=== PATIENT | female | born 1930 | race Caucasian/White ===

== ENCOUNTER → 2017-12-07 | Outpatient (CLI) | payer MEDICARE ==
[2017-12-07 09:59] LABS: Calcium 9.7 mg/dL (8.4-10.2); Potassium 4.1 mmol/L (3.5-5.1)
== END | disposition home or self-care (01) ==
LOC: LABWHC1 09:06
PROVIDERS: ATTEND Internal Medicine Interventional Cardiology
DX: E87.5 Hyperkalemia (principal)
CPT/HCPCS: 36415; 80048

== ENCOUNTER → 2018-01-09 | Outpatient (CLI) | payer MEDICARE ==
[2018-01-09 08:48] LABS: Calcium 9.5 mg/dL (8.4-10.2)
== END | disposition home or self-care (01) ==
LOC: LABWHC1 08:01
PROVIDERS: ATTEND Internal Medicine Interventional Cardiology
DX: I10 Essential (primary) hypertension (principal); E87.5 Hyperkalemia
CPT/HCPCS: 36415; 80048

== ENCOUNTER → 2018-06-13 | Outpatient (CLI) | payer MEDICARE ==
[2018-06-13 09:54] VITALS: BP 129/62; PULSE 85; RESP 16; TEMP 97.5; BMI 27.3
--- NOTE | 2018-06-13 11:04 | P.HPOB ---
History of Present Illness H&P Date: 06/13/18 Chief Complaint: The patient is here for her routine gynecologic exam. This is an 87-year-old with an LMP of 1970. The patient is here to establish with this office. She is status post cystocele and rectocele repairs in 1959 and total abdominal hysterectomy in 1969. She states she has been followed conservatively for a cystocele during the past 10-15 years. It has been about 10 years since her last pelvic exam. She feels like the cystocele may be getting worse since she feels pelvic pressure and has the feeling that "something is down there". She does not see anything protruding from the vaginal opening. She states her urinary stream is more for word than usual. She often feels like she still has to urinate after voiding. She is not sexually active. Review of Systems She lost about 15 pounds about 2 years ago and she was happy with that. Her weight has been fairly stable since then.. She denies respiratory, cardiac and G.I. problems. She denies maltreatment or problems with falling. : she denies any significant problems with urinary leakage but has had a change in her urinary stream and has had urinary urgency as above in the HPI. 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 History of Any Multi-Drug Resistant Organisms: None Reported Past Surgical History: Appendectomy, Section, Cholecystectomy, Heart Catheterization With Stent, Hysterectomy, Joint Replacement (Bilateral knee replacement surgery) Additional Past Surgical History / Comment(s): Cystocele,Rectocele,Retina Detachments and repair,Cataract,R & L knee replacment. Colonoscopy 2013(6th). 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 She is not sexually active or seeing anybody at this time. - Past Family History Mother Family Medical History: Cancer (Possible esophageal) Sister(s) Family Medical History: Cancer (Type unknown) Father Family Medical History: No Reported History Medications and Allergies Home Medications Medication Instructions Recorded Confirmed Type Aspirin 81 mg PO DAILY 06/13/18 06/13/18 History Atenolol [Tenormin] 25 mg PO DAILY 06/13/18 06/13/18 History Atorvastatin [Lipitor] 10 mg PO DAILY 06/13/18 06/13/18 History Hydrochlorothiazide [Hydrodiuril] 12.5 mg PO DAILY 06/13/18 06/13/18 History Levothyroxine Sodium [Synthroid] 75 mcg PO DAILY 06/13/18 06/13/18 History Multivit with Calcium,Iron,Min 1 each PO DAILY 06/13/18 06/13/18 History [Women's Multivitamin] Saxagliptin HCl [Onglyza] 5 mg PO DAILY 06/13/18 06/13/18 History glipiZIDE [Glucotrol] 5 mg PO TID 06/13/18 06/13/18 History Allergies Allergy/AdvReac Type Severity Reaction Status Date / Time No Known Allergies Allergy Unverified 06/13/18 09:39 Exam Vital Signs Temp Pulse Resp BP Pulse Ox 06/13/18 09:45 97.5 F L 85 16 129/62 95 Intake and Output 06/12/18 06/13/18 06/13/18 22:59 06:59 14:59 Other: Weight 72.121 kg Height 5'4", weight 159 pounds, BMI 27.3. This is a well-developed well-nourished white female who is alert and oriented times 3 in no acute distress. HEENT: Within normal limits. NECK: Supple without mass or thyromegaly. CHEST AND LUNGS: Clear to auscultation. HEART: Regular rate and rhythm. BREASTS: Are without mass or discharge. AXILLARY EXAM: Negative for adenopathy. BACK: Negative for CVA tenderness. ABDOMEN: Soft, nontender, without palpable masses. PELVIC EXAM: External genitalia appears normal with moderate atrophy. Vagina appears normal with moderate atrophy. The vaginal cuff is well supported There is a small cystocele at rest, grade 1. With Valsalva, there is a grade 2 cystocele. Bimanual examination is negative for mass and there is minimal tenderness in the area of the bladder. There is no adnexal tenderness or mass. RECTAL EXAM: Rectovaginal exam is negative for mass or tenderness and is negative for occult blood. There is no significant rectocele noted and no evidence of enterocele. EXTREMITIES: Nontender. IMPRESSION: 1. 87 year old menopausal female status post cystocele and rectocele repairs in 1959 and DEYVI in 1969. 2. Grade 2 cystocele which may be directly or indirectly causing vaginal symptoms of pressure. 3. Urinary urgency with which may or may not be related to the cystocele. Differential diagnosis will also include incomplete emptying and urinary tract infection. PLAN: 1. Pap smears have been discontinued. 2. Self breast awareness was discussed with the patient. 3. I have recommended screening mammogram. She is uncertain as to whether this is covered by her insurance. She has not had this done for several years. The orders that was given to the patient for this and she will call her insurance company to check her coverage. 4. Osteoporosis prevention was discussed. I have stressed the importance of adequate calcium, vitamin D and regular exercise. Recommended amounts of calcium and vitamin D were also discussed. I have recommended bone density screening since it is been 5 to 10 years since she has had this done according to the patient. The order slip was given to the patient. 5. Urinalysis and urine culture have been obtained. 6. She did receive a flu shot and fall. 7. We have had a long discussion regarding her symptoms and small cystocele. At this time I do not feel that surgery is warranted. She will try to empty her bladder more completely by using negative Valsalva exercises and spending more time voiding as well as trying to empty the bladder more completely with relaxation. Instructions were given to the patient on negative Valsalva exercises. She will try these prior to voiding. 8. She will return in one year and PRN.
[2018-06-13 16:11] LABS: Appearance,Urine Clear (Clear); Bilirubin,Urine Negative (Negative); Blood,Urine Negative (Negative); Color,Urine Light Yellow; Glucose,Urine (UA) Negative (Negative); Ketones,Urine Negative (Negative); Leukocyte Esterase,Urine Negative (Negative); Nitrite,Urine Negative (Negative); PH, Urine 5.5 (5.0-8.0); Protein,Urine Negative (Negative); Specific Gravity,Urine 1.006 (1.001-1.035); Urobilinogen,Urine <2.0 mg/dL (<2.0)
--- NOTE | 2018-06-14 15:13 | P.PN ---
Progress Note - Text Progress Note Date: 06/14/18 Urinalysis done yesterday was negative. The patient was notified by phone. Await urine culture results.
== END | disposition home or self-care (01) ==
LOC: WWCWWP 09:24
PROVIDERS: ATTEND Obstetrics & Gynecology
DX: R39.15 Urgency of urination (principal)
CPT/HCPCS: 81003; 87086

== ENCOUNTER → 2018-08-03 | Outpatient (CLI) | payer MEDICARE ==
--- NOTE | 2018-08-03 11:43 | BD ---
EXAMINATION TYPE: Axial Bone Density DATE OF EXAM: 08/03/2018 COMPARISON: NONE CLINICAL HISTORY: Postmenopausal without hormone replacement therapy Height: 5 FT 3 IN Weight: 158 FRAX RISK QUESTIONS: Secondary Osteoporosis: Rheumatoid Arthritis: YES RISK FACTORS HISTORY OF: Active: YES Postmenopausal woman: AMBAR AYALA IN HER 30'S Lost more than 2 inches in height since high school: YES MEDICATIONS: Thyroid Medications: YES Which medication: SYNTHROID How Lon YEARS Additional Medications: ONGLYZA, SYNTHROID, LIPITOR, ATENOLOL, GLIPIZIDE, VIT, HYDROCHLOROTHIAZIDE, A SPIRIN Additional History: EXAM MEASUREMENTS: Bone mineral densitometry was performed using the [employer] System. Bone mineral density as measured about the Lumbar spine is: ----- L1-L4(G/cm2): 1.235 T Score Values are as follows: ----- L2: 0.2 ----- L3: 1.0 ----- L4: 0.6 ----- L1-L4: 0.[address] MALIKA OLSEN Bone mineral density about the R hip (g/cm2): 1.101 Bone mineral density about the L hip (g/cm2): 1.004 T Score values are as follows: -----R Neck: 0.5 -----L Neck: -0.2 -----R Total: 0.7 -----L Total: 0.[address] MALIKA OLSEN IMPRESSION: Normal (Values between +1 and -1 indicate normal bone mass). Consider repeating this study in 5 year s or sooner if there is some new clinical indication. NOTE: T-SCORE=SD OF THE YOUNG ADULT MEAN.
--- NOTE | 2018-08-06 11:13 | MM ---
Reason for exam: screening (asymptomatic). Last mammogram was performed 4 years and 6 months ago. History: Patient is postmenopausal. Physical Findings: A clinical breast exam by your physician is recommended on an annual basis and results should be correlated with mammographic findings. MG 3D Screening Mammo W/Cad Bilateral CC and MLO view(s) were taken. Prior study comparison: February 05, 2014, bilateral MG screening mammo w CAD. February 04, 2013, bilateral digital screening mammo w/CAD. Benign appearing bilateral calcifications. Focal asymmetry of the left retroareolar breast stable back to 2013. ASSESSMENT: Benign, BI-RAD 2 RECOMMENDATION: Routine screening mammogram of both breasts in 1 year.
--- NOTE | 2018-08-07 17:55 | P.PN ---
Progress Note - Text Progress Note Date: 08/07/18 OUTPATIENT FOLLOW-UP NOTE TEST(S)/RESULTS: test results from 08/03/2018 include benign mammogram and normal bone density test. METHOD OF NOTIFICATION: the patient was notified by phone. PATIENT COMMENTS: she is happy to hear these results. DIAGNOSIS: normal bone density testing and benign mammogram. DISCUSSION: I have recommended that she get adequate calcium, vitamin D and regular exercise as previously discussed. PLAN: repeat bone density testing in 6 years.She was advised to return in one year for her annual well woman exam.
== END | disposition home or self-care (01) ==
LOC: RADBDWWP 08:19
PROVIDERS: ATTEND Obstetrics & Gynecology
DX: Z12.31 Encounter for screening mammogram for malignant neoplasm of breast (principal); Z78.0 Asymptomatic menopausal state
CPT/HCPCS: 77063; 77067; 77080

== ENCOUNTER → 2019-06-18 | Outpatient (CLI) | payer MEDICARE ==
[2019-06-18 09:43] VITALS: BP 99/65; PULSE 78; RESP 18; TEMP 98.2
--- NOTE | 2019-06-18 10:21 | P.HPOB ---
History of Present Illness H&P Date: 06/18/19 Chief Complaint: The patient is here for her routine gynecologic exam. This is an 88-year-old with an LMP of 1970. The patient is without gynecologic complaints. She is status post DEYVI and cystocele and rectocele repairs in the past for benign reasons. The patient has been followed conservatively for a mild cystocele. She denies any significant problems from the cystocele. Review of Systems She has lost about 4 pounds over the last year. She denies respiratory, cardiac and G.I. problems. She denies maltreatment or problems with falling. : she denies any significant problems with urinary leakage. 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 History of Any Multi-Drug Resistant Organisms: None Reported Past Surgical History: Appendectomy, Section, Cholecystectomy, Heart Catheterization With Stent, Hysterectomy, Joint Replacement Additional Past Surgical History / Comment(s): Cystocele,Rectocele,Retina Detachments and repair,Cataract,R & L knee replacment. Colonoscopy 2013(6th). Past Anesthesia/Blood Transfusion Reactions: No Reported Reaction Date of Last Stent Placement:: 2007 Past Psychological History: No Psychological Hx Reported Smoking Status: Never smoker Past Alcohol Use History: None Reported Past Drug Use History: None Reported Additional History: She is a and is not sexually active. 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 - Past Family History Mother Family Medical History: Cancer Additional Family Medical History / Comment(s): Possible esophageal cancer. She is uncertain as to the exact primary. Sister(s) Family Medical History: Cancer Additional Family Medical History / Comment(s): Cancer type unknown. Father Family Medical History: No Reported History Medications and Allergies Home Medications Medication Instructions Recorded Confirmed Type Aspirin 81 mg PO DAILY 06/13/18 06/18/19 History Atenolol [Tenormin] 25 mg PO DAILY 06/13/18 06/18/19 History Atorvastatin [Lipitor] 10 mg PO DAILY 06/13/18 06/18/19 History Hydrochlorothiazide [Hydrodiuril] 12.5 mg PO DAILY 06/13/18 06/18/19 History Levothyroxine Sodium [Synthroid] 75 mcg PO DAILY 06/13/18 06/18/19 History Multivit with Calcium,Iron,Min 1 each PO DAILY 06/13/18 06/18/19 History [Women's Multivitamin] Saxagliptin HCl [Onglyza] 5 mg PO DAILY 06/13/18 06/18/19 History glipiZIDE [Glucotrol] 5 mg PO TID 06/13/18 06/18/19 History Allergies Allergy/AdvReac Type Severity Reaction Status Date / Time No Known Allergies Allergy Unverified 06/18/19 09:43 Exam Vital Signs Temp Pulse Resp BP Pulse Ox 06/18/19 09:38 98.2 F 78 18 99/65 94 L Intake and Output 06/17/19 06/18/19 06/18/19 22:59 06:59 14:59 Other: Weight 70.307 kg Height 5 feet 4 inches, weight 155 pounds, BMI 26.6. This is a well-developed well-nourished white female who is alert and oriented times 3 in no acute distress. HEENT: Within normal limits. NECK: Supple without mass or thyromegaly. CHEST AND LUNGS: Clear to auscultation. HEART: Regular rate and rhythm. BREASTS: Are without mass or discharge. AXILLARY EXAM: Negative for adenopathy. BACK: Negative for CVA tenderness. ABDOMEN: Soft, nontender, without palpable masses. PELVIC EXAM: External genitalia appears normal with moderate atrophy. Vagina appears normal with mild to moderate atrophy. There is a stable grade 1-2 cystocele. Bimanual examination is negative for mass or tenderness. RECTAL EXAM: Rectovaginal exam is negative for mass or tenderness and is negative for occult blood. EXTREMITIES: Nontender. IMPRESSION: 1. 88-year-old menopausal female who is status post DEYVI for benign reasons with previous cystocele and rectocele repairs. 2. Grade 1-2 cystocele which is stable and asymptomatic. This is unchanged from her previous exam. PLAN: 1. Pap smears have been discontinued. 2. Self breast awareness was discussed with the patient. 3. Screening mammogram was done on 08/03/2018. The order slip was given to the patient and is to be repeated 1 year after her previous one. 4. She does get flu shots in the fall. 5. Bone density testing was normal on 08/03/2018. We will plan on repeating this after about 6 years. 6. She was advised to return in one year for her annual well woman exam.
== END | disposition home or self-care (01) ==
LOC: WWCWWP 09:04
PROVIDERS: ATTEND Obstetrics & Gynecology
DX: Z53.9 Procedure and treatment not carried out, unspecified reason (principal)